=== PATIENT | female | born 1940 | race Caucasian/White ===

== ENCOUNTER 2024-09-25 10:25 | Outpatient (AMB) | payer MEDICARE, BC, SELFPAY ==
--- NOTE | 2024-09-25 10:27 | MHC.OFFVIS ---
Intake Visit Reasons: 3m anxiety Allergies clindamycin Allergy (Unknown, Verified 09/23/24 09:20) Unknown Medication List - Last Reconciled 09/25/24 by Kyle Anderson MD alprazolam 0.25 mg PO PRN escitalopram oxalate 5 mg PO DAILY HPI Comments Details: 83 years old left-handed woman who has been taking some medicines for her feet and leg symptoms for number of years. He said that they were prescribed to her for peripheral neuropathy. At this time her symptoms were numbness in her feet and legs but no pain. There has been no change in her prescriptions and she continued to take them. She was not known to have diabetes and was not drinking alcohol and does not exposed to chemotherapy. She was still feeling stressed and anxious about her 's medical condition. [facility] Medical History (Updated 09/25/24 @ 11:01 by Kyle Anderson MD) Anxiety Peripheral neuropathy Review of Systems Const Details: Constitutional:?No fever, chills, fatigue, weight loss, or night sweats. HEENT:?No headache, vision changes, hearing loss, nasal congestion, sore throat. Neurological:?Feeling numbness in legs Psychiatric:?Feeling stressed and nervous Endocrine:?No heat/cold intolerance, polydipsia, polyuria, or hair/skin changes. Hematologic/Lymphatic:?No easy bruising, bleeding, or lymphadenopathy. Integumentary (Skin):?No rash, lesions, itching, or color changes. ? Physical Exam Neuro Other: Mental Status: Alert and oriented to person, place, and time. Normal attention. Normal spontaneous speech, fluency, and comprehension. No obvious issues with mood and memory. Affect is appropriate. Cranial Nerves: CN II: Visual gomes full to confrontation, visual acuity intact. CN III, IV, : Pupils equal, round, reactive to light and accommodation. Extraocular movements are normal. CN V: Facial sensation is normal. CN VII: Facial movements symmetrical. CN VIII: Hearing intact to bedside conversation is normal. CN IX, X: Palate elevates symmetrically. CN XI: Shoulder shrug and head turn symmetrical. CN XII: Tongue midline without atrophy or fasciculations. Motor: Bulk and tone normal in all extremities. No significant muscle weakness in arms and legs. No drift. Reflexes: Deep tendon reflexes 2+ and symmetric. Plantar response down-going bilaterally. Coordination: Nifope-ig-baoy and qagl-uz-vnaw testing normal. No dysmetria. Gait and Station: No obvious gait abnormality. No ataxia or instability. Sensory: Intact to light touch, pinprick, and vibration. Romberg is negative. Extrapyramidal: Full facial expressions and blinking. No rigidity. Movements are appropriate with no tremor or abnormality. Speech: Normal; no dysarthria or tremor. Assessment & Plan Assessment & Plan (1) Peripheral neuropathy: Code(s): G62.9 - Polyneuropathy, unspecified Category: Medical Qualifiers: Peripheral neuropathy type: polyneuropathy, unspecified Qualified Code(s): G62.9 - Polyneuropathy, unspecified (2) Anxiety: Code(s): F41.9 - Anxiety disorder, unspecified Category: Medical Plan Impression: Leg numbness from peripheral neuropathy with significant anxiety and stress Rec: a: Escitaloprim 5mg one a day b: Alprazolam 0.25mg one or twice a day as needed for anxiety/panic Medications: New escitalopram oxalate 5 mg PO DAILY 90 tabs 1RF Coding Level of Care Code Est Pt Level 4 (69473) Diagnoses Peripheral polyneuropathy G62.9 Peripheral neuropathy type: polyneuropathy, unspecified Anxiety F41.9
--- OUTSIDE RECORDS SUMMARY | 2024-09-25 11:00 | XMS_ITS | Clinical Summary ---
Author Organization [facility] Address [address] [place] [address] Phone Care Team Providers Care Health Informatics Instructor Name Role Phone Teresa Ballard Primary Care Provider Allergies Active Allergy Reactions Criticality Noted Date Comments Adhesive Rash 06/06/2024 pt allergic to the adhesive in the bandages.... pt allergic to the adhesive in tape... Clindamycin Diarrhea 06/06/2024 Latex Rash 06/06/2024 Medications metoprolol succinate (TOPROL-XL) 100 mg 24 hr tablet Take 1 tablet (100 mg total) by mouth 1 (one) time each day. for 90 days Active amLODIPine (NORVASC) 5 mg tablet Take 1 tablet (5 mg total) by mouth 1 (one) time each day. for 90 days Active levothyroxine sodium (SYNTHROID ORAL) Take 50 mcg by mouth. 4 Active lisinopriL (PRINIVIL,ZESTR IL) 20 mg tablet Take 1 tablet (20 mg total) by mouth 1 (one) time each day. Active pentoxifylline (TRENtal) 400 mg CR tablet TAKE 1 TABLET (400 MG) BY ORAL ROUTE 2 TIMES PER DAY WITH MEALS FOR 90 DAYS Active estradioL (ESTRACE) 0.01 % (0.1 mg/gram) vaginal cream 1 Gram to the affected area Vaginal/Vulva Twice a week for 90 Days 4 Active calcium citrate-vitamin D3 (Citracal + D Maximum) 315 mg-6.25 mcg (250 unit) per tablet 1 tablet every 12 hours. Active cholecalciferol (VITAMIN D-3) 50 mcg (2,000 unit) tablet 1 tablet (2,000 Units total) 3 (three) times a week. 3 Active multivitamin with minerals (Centrum Silver) tablet ORAL for -3 1 Active Bifidobacterium infantis (Align, B.infantis,) 4 mg capsule 1 (one) time each day at the same time. 3 Active sodium chloride (Simply Saline) 0.9 % aerosol,spray as directed Nasally Active peg 400-propylene glycol (Systane Ultra) 0.4-0.3 % drops Administer 1 drop into both eyes 1 (one) time each day at the same time. 3 Active vitamin B complex vit C no.4 (SUPER B COMPLEX + C ORAL) Super B Complex Acti ve desonide (DESOWEN) 0.05 % lotion 1 Application. Activ e desoximetasone (TOPICORT) 0.25 % cream APPLY THIN LAYER TO AFFECTED AREAS ON ARMS AND LEGS FOR UP TO 2 WEEKS AT A TIME NEEDED 4 Active estradioL (ESTRACE) 0.01 % (0.1 mg/gram) vaginal cream INSERT 1 GRAM VAGINALY TWICE A WEEK FOR 90 DAYS 4 Active escitalopram (LEXAPRO) 5 mg tablet Take 1 tablet (5 mg total) by mouth 1 (one) time each day. for 30 days 5 Active pimecrolimus (ELIDEL) 1 % cream Apply topically 2 (two) times a day. Active triamcinolone (KENALOG) 0.1 % cream Apply topically 2 (two) times a day. 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 Benign essential hypertension 12/15/2021 Butterfly rash 12/15/2021 Closed fracture of left wrist 12/15/2021 Primary hypothyroidism 12/15/2021 Polyp of colon 12/15/2021 Raynaud's phenomenon 12/15/2021 Primary hyperparathyroidism ([facility] V24) 2021 Scoliosis of lumbar spine 12/15/2021 Hyponatremia 12/15/2021 Idiopathic peripheral neuropathy 12/15/2021 Encounters Date Type Department Care Team Description 08/12/2024 8:00 AM EDT Office Visit Gastroenterology - [address] [facility] [address] [place] [phone] Shikha Valencia PA Other irritable bowel syndrome (Primary Dx) 07/29/2024 9:14 AM EDT Anesthesia Event [facility] [address] [place] [address] Michele Rojo MD 07/29/2024 8:08 AM EDT - 07/29/2024 11:59 PM EDT Hospital Encounter [facility] [address] [place] [phone] Alexx Moreland MD Hayes, Brett L, CRNA Dasilva, John E, MD Diarrhea; Family history of malignant neoplasm of digestive organs; Personal history of colon polyps, unspecified Discharge Disposition: Home or Self Care from Last 3 Months Surgical History Surgery Date Site/Laterality Comments COLONOSCOPY 07/08/2021 recall 3 yrs HYSTERECTOMY DILATION AND CURETTAGE OF UTERUS BREAST BIOPSY COLONOSCOPY 07/03/2018 SSx1 COLONOSCOPY 08/06/2015 COLONOSCOPY 12/08/2010 COLONOSCOPY 10/18/2005 Medical History Medical History Date Comments Chronic diarrhea Colon polyp colonoscopy Hypertension Had around 1999 Anxiety Family History Medical History Relation Name Comments Colon cancer Mother Colon cancer Mother's Brother 1 Colon polyps Mother's Brother 2 Colon polyps Mother's Brother 3 Colon cancer Sister Relation Name Status Comments Mother Mother's Brother 1 Mother's Brother 2 Alive Mother's Brother 3 Alive Sister Social History Tobacco Use Types Packs/Day Years Used Date Smoking Tobacco: Never Smokeless Tobacco: Never Tobacco Cessation:Counseling Given: Not Answered Alcohol Use Standard Drinks/Week Comments Yes 0 (1 standard drink = 0.6 oz pur e alcohol) rare Interpersonal Safety Answer Date Record ed Physical Abuse 07/29/2024 Verbal Abuse 07/29/2024 Comments No Sex and Gender Information Value Date Recorded Sex Assigned at Not on file Legal Sex Female 8:08 AM EST Gender Identity Not on file Sexual Orientation Not on file Obstetrics History Last Filed Vital Signs Vital Sign Reading Time Taken Comments Blood Pressure 101/57 07/29/2024 9:55 AM EDT Pulse 57 07/29/2024 9:55 AM EDT Temperature 36.3 C (97.3 F) 07/29/2024 9:35 AM EDT Respiratory Rate 12 07/29/2024 9:55 AM EDT Oxygen Saturation 99% 07/29/2024 9:55 AM EDT Inhaled Oxygen Concentration - - Weight 49.4 kg (109 lb) 08/12/2024 7:57 AM EDT Height 165.1 cm (5' 5 ) 08/12/2024 7:57 AM EDT Body Mass Index 18.14 08/12/2024 7:57 AM EDT Plan of Treatment Upcoming Encounters Date Type Department Care Team (Late st Contact Info) Description 10/14/2024 8:00 AM EDT [facility]ointment [facility] [address] [phone] Health Maintenance Due Date Last Done Comments Zoster Vaccines (1 of 2) 1959 DTaP,Tdap,and Td Vaccines (2 - Td or Tdap) 01/15/2021 01/15/2011 Cholesterol Screening (Lipid Panel) 02/13/2022 Depression Screening 02/13/2022 Medicare Annual Wellness Visit 02/13/2022 Osteoporosis Screening (Bone Density Screening) 02/13/2022 Social Influencers of Health Screening 02/13/2022 Hypertension/CHF/CAD Annual BMP Blood Test 06/06/2024 COVID-19 Vaccine (9 - Pfizer risk 2023- season) 2024 02/13/2024, 01/02/2023, 07/05/2022, Additional history exists Influenza Vaccine (#1) 2024 , 12/06/2022, 12/16/2021, Additional history exists Falls Risk Assessment 07/29/2025 07/29/2024 Pneumococcal Vaccine: 50+ Years Completed 01/31/2023 RSV Immunization Adult Patients Completed 03/09/2023 HIB Vaccines Aged Out No longer eligi ble based on patient's age to complete this topic HPV Vaccines Aged Out No longer eligi ble based on patient's age to complete this topic Hepatitis A Vaccines Aged Out No long er eligible based on patient's age to complete this topic Hepatitis B Vaccines Aged Out No long er eligible based on patient's age to complete this topic IPV Vaccines Aged Out No longer eligi ble based on patient's age to complete this topic MMR Vaccines Aged Out No longer eligi ble based on patient's age to complete this topic Meningococcal ACWY Vaccine Aged Out N o longer eligible based on patient's age to complete this topic Meningococcal B Vaccine Aged Out No l onger eligible based on patient's age to complete this topic RSV Immunization Patients Under 20 months Aged Out No longer eligible based on patient's age to complete this topic Varicella Vaccines Aged Out No longer eligible based on patient's age to complete this topic Procedures Procedure Name Priority Date/Time Associated Diagnosis Comments COLONOSCOPY Routine 07/29/2024 9:34 AM EDT Diarrhea Family history of malignant neoplasm of digestive organs Personal history of colon polyps, unspecified TISSUE EXAM Routine 07/29/2024 9:27 AM EDT Diarrhea Family history of malignant neoplasm of digestive organs Personal history of colon polyps, unspecified from Last 3 Months Results * COLONOSCOPY Anesthesia - MAC; [facility] END[facility]COPY (07/29/2024 9:34 AM EDT) Anatomical Region Laterality Modality Endoscopy 07/29/2024 9:17 AM EDT Impressions 07/29/2024 9:35 AM EDT - One 5 mm polyp in the transverse colon, removed with a cold snare. Resected and retrieved. - The examination was otherwise normal. Recommendation: - Patient has a contact number available for emergencies. The signs and symptoms of potential delayed complications were discussed with the patient. Return to normal activities tomorrow. Written discharge instructions were provided to the patient. - Resume previous diet. - Continue present medications. - Await pathology results. Narrative 07/29/2024 9:[address] [facility] Patient Name: Karis Crawford Procedure Date: 07/29/2024 9:17 AM Date of : 1940 Age: 83 Room: ROOM 17 Gender: Female Note Status: Finalized Attending MD: Alexx Moreland MD, Procedure Date No Time: 07/29/2024 Procedure: Colonoscopy Indications: Screening patient at increased risk: Family history of colorectal cancer in multiple 1st-degree relatives Providers: Alexx Moreland MD Referring MD: Alexx Moreland MD Medicines: Monitored Anesthesia Care Complications: No immediate complications. Estimated Blood Loss: Estimated blood loss: none. Procedure: After I obtained informed consent, the scope was passed under direct vision. Throughout the procedure, the patient's blood pressure, pulse, and oxygen saturations were monitored continuously. The Colonoscope was introduced through the anus and advanced to the cecum, identified by appendiceal orifice and ileocecal valve. The colonoscopy was performed without difficulty. The patient tolerated the procedure well. The quality of the bowel preparation was adequate. Findings: A 5 mm polyp was found in the transverse colon. The polyp was sessile. The polyp was removed with a cold snare. Resection and retrieval were complete. The exam was otherwise without abnormality. Procedure Code(s): --- Professional --- 17391, Colonoscopy, flexible; with removal of tumor(s), polyp(s), or other lesion(s) by snare technique Diagnosis Code(s): --- Professional --- D12.3, Benign neoplasm of transverse colon (hepatic flexure or splenic flexure) Z80.0, Family history of malignant neoplasm of digestive organs CPT copyright 2020 [employer]. All rights reserved. The codes documented in this report are preliminary and upon oil well shooter review may be revised to meet current compliance requirements. MD Alexx Bolaños MD 07/29/2024 9:35:11 AM This report has been signed electronically.Alexx Moreland MD Number of Addenda: 0 Note Initiated On: 07/29/2024 9:17 AM Scope In: Scope Out: Endoscopy Department at [facility] - [address] [place] [phone] Procedure Note Alexx Moreland MD - 07/29/2024 [facility] Patient Name: Karis Crawford Procedure Date: 07/29/2024 9:17 AM Date of : 1940 Age: 83 Room: ROOM 17 Gender: Female Note Status: Finalized Attending MD: Alexx Moreland MD, Procedure Date No Time: 07/29/2024 Procedure: Colonoscopy Indications: Screening patient at increased risk: Family historyof colorectal cancer in multiple 1st-degreerelatives Providers: Alexx Moreland MD Referring MD: Alexx Moreland MD Medicines: Monitored Anesthesia Care Complications: No immediate complications. Estimated Blood Loss: Estimated blood loss: none. Procedure: After I obtained informed consent, the scope was passed under direct vision. Throughout theprocedure, the patient's blood pressure, pulse, and oxygen saturations were monitored continuously. The Colonoscope was introduced through the anus and advanced to the cecum, identified by appendiceal orifice and ileocecal valve. The colonoscopy was performed without difficulty. The patient tolerated the procedure well. The quality of the bowel preparation was adequate. Findings: A 5 mm polyp was found in the transverse colon. The polyp was sessile. The polyp was removed with acold snare. Resection and retrieval were complete. The exam was otherwise without abnormality. Procedure Code(s): --- Professional --- 68137, Colonoscopy, flexible; with removal of tumor(s), polyp(s), or other lesion(s) by snare technique Diagnosis Code(s): --- Professional --- D12.3, Benign neoplasm of transverse colon (hepatic flexure or splenic flexure) Z80.0, Family history of malignant neoplasm of digestive organs CPT copyright 2020 [employer]. All rights reserved. The codes documented in this report are preliminary and upon oil well shooter reviewmay be revised to meet current compliance requirements. MD Alexx Bolaños MD 07/29/2024 9:35:11 AM This report has been signed electronically.Alexx Moreland MD Number of Addenda: 0 Note Initiated On: 07/29/2024 9:17 AM Scope In: Scope Out: Endoscopy Department at [facility] - [address] [place] [phone] IMPRESSION: - One 5 mm polyp in the transverse colon, removed with a cold snare. Resected and retrieved. - The examination was otherwise normal. Recommendation: - Patient has a contact number available for emergencies. The signs and symptoms of potential delayed complications were discussed with thepatient. Return to normal activities tomorrow. Written discharge instructions were provided to thepatient. - Resume previous diet. - Continue present medications. - Await pathology results. Alexx Moreland MD GI~PROCEDURE ORDERABLES Final R esult * Tissue exam (07/29/2024 9:27 AM EDT) Final Diagnosis Polyp, transverse colon, polypectomy: - Tubular adenoma. 07/30/2024 10:00 AM EDT [facility] Gross Description A. Large Intestine, Transverse Colon, polypX1: Labeled trans colon polyp x 1 . Received in formalin is a 0.6 cm irregular saleh mucosal tissue fragment which is wrapped in paper and submitted in toto in one cassette, one piece, multiple levels on one slide. CLAUDIO 07/30/2024 10:00 AM EDT [facility] Disclaimer Unless otherwise specified, all tissue is 10% NB formalin fixed and paraffin embedded. 07/30/2024 10:00 AM EDT [facility] Tissue Transverse colon structure / Unknown 07/29/2024 9:27 AM EDT 07/29/2024 10:22 AM EDT Alexx Moreland MD LAB PATHOLOGY ORDERABLES Final Result [facility] [address] [place] [address], from Last 3 Months Insurance MEDICARE [facility] Member Subscriber Plan / Payer (Ef fective 2024-Present) Name:KARIS CRAWFORD Relation to Subscriber:Spouse Name:SAMAN CRAWFORD Date of :1940 (Home) Address: [address] [place] [phone] Payer ID:[id number] Group ID:[id number] Type:Not on file Address: [address] [place] [address] Care Teams Health Informatics Instructor Relationship Specialty Start Date End Date Teresa Ballard PA [facility] [address] [place] [address] PCP - General Physician Corrective Therapy Aide Teacher 05/13/24
--- OUTSIDE RECORDS SUMMARY | 2024-09-25 11:00 | XMS_ITS | Continuity of Care Document ---
Author Organization [facility] [address] [place] [address] Phone [phone] Care Team Providers Care Ophthalmic Medical Technician Name Role Phone Spring Singletary MD Care Team Inform ation Home Builder [phone] Teresa Ballard PA-C Care Team Information Re ceiver [phone] Problems Active Problems Provider Date Scoliosis of lumbar spine Jenna Tejeda M.D. Onset: 12/15/2021 Osteoporosis Jenna Tejeda M.D. Ons et: 12/15/2021 Essential hypertension Asiya Mehta Onset: 12/15/2021 Hypothyroidism Jenna Tejeda M.D. Ons et: 12/15/2021 Polyp of colon Jenna Tejeda M.D. Ons et: 12/15/2021 Raynaud's phenomenon Margaret Mehta Onset: 12/15/2021 Primary hypothyroidism Asiya Mehta Onset: 12/15/2021 Hyponatremia Jenna Tejeda M.D. Ons et: 12/15/2021 Primary hyperparathyroidism Jenna saha M.D. Onset: 12/15/2021 Idiopathic peripheral neuropathy Jenna Butt M.D. Onset: 12/15/2021 Butterfly rash Jenna Tejeda M.D. Ons et: 12/15/2021 Closed fracture of left wrist Jenna estrada M.D. 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 Multivitamin Womens 50+ AdvancedTablets 1 by mouth every day Jenna Tejeda M.D. Vitamin B ComplexTablets 1 every day Jenna Tejeda M.D. Oaojs0df Capsules 1 by mouth every day Jenna Tejeda M.D. Metoprolol Succinate IL790ut Tablets ER 24HR Take 1 Tablet By Mouth Every Day Jenna Tejeda M.D. Jgwchxfghh31qz Tablets 1 by mouth every day 90tabs Jenna Tejeda M.D. Vitamin D High Rdggonu08kiu (1000 Ut) Capsules 1 by mouth 3 x week Jenna Tejeda M.D. Estradiol0.1mg/GM Cream 2 x week K jany Tejeda M.D. Amlodipine Betyezbj9rm Tablets 1 by mouth every day Unknown Citracal Rprmclw747-2.25mg-mcg Tablets 2 by mouth every day Jenna Tejeda M.D. Vital Signs Date Vital Result Comment 06/21/2024 8:01am BP Systolic 140 mmHg BP Diastolic 80 mmHg Heart Rate 93 /min Height 65.5 inches 5'5.50 Weight 110.00 lb BMI (Body Mass Index) 18.0 kg/m2 Results Test Acquired Date Facility Test Result H/L Range Note TSH Rfx on Abnormal to Free T4 06/21/2024 [facility] TSH Rfx on Abnormal to Free T4 1.090 uIU/mL 0.450-4. 500 Basic Metabolic Panel (8) 06/21/2024 [facility] Glucose 86 mg/dL 70-99 BUN 16 mg/dL 8-27 Creatinine 0.74 mg/dL 0.57-1.0 0 eGFR 81 mL/min/1.7 3 >59 BUN/Creatinine Ratio 22 12-28 Sodium 138 mmol/L 134-144 Potassium 4.4 mmol/L 3.5-5.2 Chloride 98 mmol/L 96-106 Carbon Dioxide, Total 28 mmol/L 20-29 Calcium 9.3 mg/dL 8.7-10.3 Vitamin D, 25-Hydroxy 06/21/2024 [facility] Vitamin D, 25-Hydroxy 66.4 ng/mL 30.0-100 .0 1 Albumin 06/21/2024 [facility] Albumin 4.1 g/dL 3.7-4.7 TSH Rfx on Abnormal to Free T4 12/21/2023 [facility] TSH Rfx on Abnormal to Free T4 2.810 uIU/mL 0.450-4. 500 TSH Rfx on Abnormal to Free T4 06/21/2023 [facility] TSH Rfx on Abnormal to Free T4 2.660 uIU/mL 0.450-4. 500 BMP7+eGFR 06/21/2023 [facility] Glucose 73 mg/dL 70-99 BUN 14 mg/dL 8-27 Creatinine 0.82 mg/dL 0.57-1.0 0 eGFR 72 mL/min/1.7 3 >59 Sodium 138 mmol/L 134-144 Potassium 4.2 mmol/L 3.5-5.2 Chloride 96 mmol/L 96-106 Carbon Dioxide, Total 25 mmol/L 20-29 Albumin 06/21/2023 [facility] Albumin 4.3 g/dL 3.7-4.7 Comprehensive Metabolic Panl 12/20/2022 [facility] Glucose 64 mg/dL Low (70-99) BUN 13 mg/dL (8-23) Creatinine 0.8 mg/dL (0.5-1.0 ) Sodium 138 mmol/L (133-145 ) Potassium 4.3 mmol/L (3.6-5.2 ) Chloride 97 mmol/L Low (98-107) Bicarbonate 29 mmol/L (22-29) Anion Gap 12 (4-17) Albumin 4.3 GM/DL (3.4-4.8 ) Calcium 9.6 mg/dL (8.6-10. 5) Bilirubin,Total 0.3 mg/dL (0-1.2 ) Total Protein 6.3 GM/DL (6.2-8.2 ) Ag Ratio 2.2 Ast 31 U/L (0-32) Alk Phos 62 U/L (35-104) Alt 19 U/L (0-33) Estimated GFR Creatinine 80 ML/MIN/1.7 3M2 2 TSH With Reflex To FT4 12/20/2022 [facility] TSH With Reflex To FT4 3.35 uIU/mL (0.4-4.2 ) 25Oh Vitamin D 12/20/2022 [facility] 25Oh Vitamin D 50.6 NG/ML High (20-50) TSH With Reflex To FT4 06/20/2022 [facility] TSH With Reflex To FT4 3.38 uIU/mL (0.4-4.2 ) 25Oh Vitamin D 06/20/2022 [facility] 25Oh Vitamin D 50.3 NG/ML High (20-50) N-Telopeptide Cross Links, Urine 12/18/2021 [facility] Cross Linked N-Telopeptides 70 3 Creat, Urine 75.8 4 N-Telopeptide/C r eat Ratio 10 5 NTX Interpretaion Comment 6 1 Vitamin D deficiency has been defined by the Whitney of Medicine and an Endocrine Society practice guideline as a level of serum 25-OH vitamin D less than 20 ng/mL (1,2). The Endocrine Society went on to further define vitamin D insufficiency as a level between 21 and 29 ng/mL (2). 1. IOM (Whitney of Medicine). 2010. Dietary reference intakes for calcium and D. [place]: The National Academies Press. 2. Solis MF, Khanh PEGUERO, James GLOVER, et al. Evaluation, treatment, and prevention of vitamin D deficiency: an Endocrine Society clinical practice guideline. JCEM. 2010; 96(7):1911-30. 2 Creatinine based est imated glomerular filtration (eGFR) in adults is calculated using the National Kidney Foundation recommended 2020 CKD-EPI equation. Estimates GFR from serum creatinine, age and sex. 3 Reference range: Not Estab. Unit: nmol [place] [address] 4 Reference range: Not Estab. Unit: mg/dL Test performed by [facility], [address] [place] [address] 5 Reference range: 0 t o 89 Unit: nM BCE/mM Cr 6 (NOTE) The N-telopeptide and Creatinine are used to calculate the N-telo/Creat. Ratio which is referred to as NTx . Suggested guidelines for the clinical use of NTx are as follows: 1. Menopausal Women not on Hormone Replacement Therapy (HRT): Women with a baseline NTx value >38 are at significant risk for a decrease in bone mineral density (BMD) after 1 year compared to women on HRT. The probability of a decline in BMD increases with NTx value as follows: (1): Baseline NTx Probability of Decrease in BMD 18- 38 1.4 p EQ 0.28 38- 51 2.5 p EQ 0.03 51- 67 3.8 p EQ 0.0006 67-188 17.3 p EQ 0.0001 2. Menopausal Women Receiving Antiresorptive Therapy: The probability that treatment is effective after three months is increased when the measured NTx value is <or EQ 38 nM BCE/mM RAILROAD WHEELS AND AXLE INSPECTOR, or NTx has decreased >or EQ 30% from baseline.[1] 3. Patients with Paget's Disease of Bone: The probability that treatment is effective after one month is increased when the measured NTx value is within the reference range, or NTx has decreased >or EQ 30% from baseline.[2] 1. Ganga CH, Ale NH, Panfilo GS, et al. Am J Med, 102:29-37,1997. (1):M757, 1995. 2. Bone H, Matthew J, et al. J Bone Min Res.11(1):M757,1996 Test performed at [facility], [address] [place] [address] Procedures Date Code Description Status 06/21/2024 22063 Collection Of Venous Blood B y Venipuncture Completed 12/21/2023 50716 Collection Of Venous Blood B y Venipuncture Completed 06/21/2023 43329 Collection Of Venous Blood B y Venipuncture Completed 12/20/2022 34640 Collection Of Venous Blood B y Venipuncture Completed 06/20/2022 33808 Collection Of Venous Blood B y Venipuncture Completed Medical Devices Description No Information Available Encounters Type Date Location Provider Dx Diagnosis Office Visit 06/21/2024 8:00a Main Office Jenna Tejeda M.D. E03.9 Hypothyroidism, unspecified M81.0 Age-related osteopor osis w/o current pathological fracture E21.0 Primary hyperparathy roidism E87.1 Hypo-osmolality and hyponatremia Assessments Date Code Description Provider 06/21/2024 E03.9 Hypothyroidism, unspecified Jenna Tejeda M.D. 06/21/2024 M81.0 Age-related oste oporosis without current pathological fracture Jenna Tejeda M.D. 06/21/2024 E21.0 Primary hyperparathyroidism Jenna Tejeda M.D. 06/21/2024 E87.1 Hypo-osmolality and hyponatr emia Jenna Tejeda M.D. Plan of Treatment Future Appointment(s):* 12/27/2024 8:15 am - Jenna Tejeda M.D. at Main Office 06/21/2023 - Jenna Tejeda M.D.* E03.9 Hypothyroidism, unspecified * E21.0 Primary hyperparathyroidism * E87.1 Hypo-osmolality and hyponatremia * M81.0 Age-related osteoporosis without current pathological fracture Functional Status Description No Information Available Mental Status Description No Information Available Referrals Description No Information Available
--- OUTSIDE RECORDS SUMMARY | 2024-09-25 11:00 | XMS_ITS | Patient Health Record ---
Author Organization [facility] Address [address] [place] [address] Care Team Providers Care Television Presenter Name Role Phone ROBERT AVALOS Primary Care Provide Naty Hansen Unavailable [phone] Allergies Allergen (clinical drug ingredient) Drug/Non Drug Allergy documented on EMR Reaction Allergy Type Onset Date Status clindamycin CLEOCIN Diarrhea Drug Allergy Activ e clindamycin CLINDAMYCIN HCL Diarrhea Drug Allergy Active Latex Latex Rash Allergy Active Reason For Referral No Information Medications Medication SIG (Take, Route, Frequency, Duration) Notes Start Date End Date Status Synthroid 50 MCG 1 tablet in the morn ing on an empty stomach Orally Once a day 01/07/2011 Active Systane Ultra ORAL daily; Duration: -3 01/10/2013 Active Metoprolol Succinate ER 100 MG Oral; Duration: 67 Days Acti ve Vitamin D3 50 MCG (2000 UT) 1 tablet Ora lly Once a day 01/10/2013 Active amLODIPine Besylate 5 MG Oral; Duration: 90 Days Active Estradiol Vaginal Cream 0.01% 1 Gram to the affected area Vaginal/Vulva Twice a week; Duration: 90 Days 09/03/2024 Active Pentoxifylline ER 400 MG 1 tablet with m eals Orally Twice a day Active Estradiol Vaginal Cream 0.01% 1 Gram to the affected area Vaginal/Vulva Twice a week; Duration: 90 Days 02/12/2024 Active Lisinopril 20 MG 1 tablet Orally Once a day Active Benefiber Active Desonide 0.05 % 1 application Zipper Trimmer Hand ally as needed Active Multi-Vitamin - 1 tablet Orally Once a day; Duration: 30 day(s) Active Super B Complex Acti ve Align ORAL daily; Duration: -3 01/10/2013 Active Citracal Maximum 315-250 MG-UNIT 1 tablet Orally Twice a day; Duration: 30 day(s) Active Amitriptyline HCl 10 MG 3 tablets Orally Once a day 10/04/2012 Active Simply Saline 0.9 % as directed Nasally Active Centrum Silver ORAL; Duration: -3 01/07/2011 Active Social History Tobacco Use: Social History Observation Description Date Details (start date - stop date) Never Smoker NA - NA AUDIT-C (Standard) Question Answer Notes Did you have a drink contain ing alcohol in the past year? Yes How often did you have a dri nk containing alcohol in the past year? Monthly or less (1 point) How many drinks did you have on a typical day when you were drinking in the past year? 1 or 2 drinks (0 point) How often did you have six o r more drinks on one occasion in the past year? Never (0 point) Points 1 Interpretation Negative Tobacco Control (Standard) Question Answer Notes Tobacco use: Nonsmoker Problems Problem Type SNOMED Code ICD Code Onset Dates Problem Status W/U Status Risk Notes Problem Postmenopausal atrophic vaginitis (76126340) Postmenopausal atrophic vaginitis (N95.2) Active confirmed Problem Postmenopausal bleeding (94833356) Postmenopausal bleeding (N95.0) Active confirmed Problem Age-related osteoporosis (073085578) Age-related osteoporosis without current pathological fracture (M81.0) Active confirmed Problem Urethral caruncle (4616746) Urethral caruncle (N36.2) Active confirmed Problem Atrophy of vulva (499319586) Atrophy of vulva (N90.5) Active confirmed Problem Hypothyroidism (80356325) Unspecified hypothyroidism (244.9) Active confirmed Major Problem Benign essential hypertension (6024844) Essential hypertension, benign (401.1) Active confirmed Major Problem Urethral caruncle (9256501) Urethral caruncle (599.3) Active confirmed Major Problem Menopausal symptom (34262828) Symptomatic menopausal or female climacteric states (627.2) Active confirmed Major Problem Postmenopausal atrophic vaginitis (90211180) Postmenopausal atrophic vaginitis (627.3) Active confirmed Other Problem Osteoporosis (83333916) Unspecified osteoporosis (733.00) Active confirmed Diag Problem Gynecological examination normal (051109556450145) Routine gynecological examination (V72.31) Active confirmed Diag Problem Screening for malignant neoplasm of cervix (239923295) Screening for malignant neoplasm of the cervix (V76.2) Active confirmed Diag Problem Screening for malignant neoplasm of colon (393465234) Special screening for malignant neoplasms, colon (V76.51) Active confirmed Major Vital Signs Temperature 97.7 degrees Fahrenheit 09/03/2024 Blood pressure diastolic 78 mm Hg 09/03/2024 Height 64.75 in 09/03/2024 Blood pressure systolic 138 mm Hg 09/03/2024 Weight 107 lbs 09/03/2024 BMI 17.94 kg/m2 09/03/2024 Encounters Encounter Location Date Provider Diagnosis [facility] [address] [place] [address] [place] [address] 02/12/2024 Naty Martinez Encounter for gynecological examination (general) (routine) without abnormal findings Z01.419 ; Encounter for screening mammogram for malignant neoplasm of breast Z12.31 ; Atrophy of vulva N90.5 ; Postmenopausal atrophic vaginitis N95.2 ; Age-related osteoporosis without current pathological fracture M81.0 and Dense breasts, unspecified R92.30 [facility] [address] [place] [address] [place] [address] 09/03/2024 Naty Martinez Postmenopausal atrophic vaginitis N95.2 and Atrophy of vulva N90.5 Assessments Encounter Date Diagnosis (ICD Code) Assessment Notes Treatment Notes Treatment Clinical Notes Section Notes 02/12/2024 Encounter for gynecological examination (general) (routine) without abnormal findings (ICD-10 - Z01.419) NO MORE PAP TESTS. 09/03/2024 Postmenopausal atrophic vaginitis (ICD-10 - N95.2) DISCUSSED FINDINGS, DX AND TX OPTIONS. DETAILED INSTRUCTIONS WERE GIVEN. APPLY THE CREAM TWICE WEEKLY INTRAVAGINALLY. 09/03/2024 Atrophy of vulva (ICD-10 - N90.5) DISCUSSED SEVERE VULVAR ATROPHY. DETAILED INSTRUCTIONS WERE GIVEN. APPLY ESTRADIOL CREAM THRICE A WEEK FOR 2 TO 4 WEEKS THEN REDUCE TO TWICE WEEKLY. USE LUBRICANTS IF NEEDED. 02/12/2024 Encounter for screening mammogram for malignant neoplasm of breast (ICD-10 - Z12.31) REGULAR MAMMOGRAMS AND SBE'S WERE RECOMMENDED. 02/12/2024 Atrophy of vulva (ICD-10 - N90.5) CONTINUE USING ESTRADIOL CREAM FOR AV AND AV. 02/12/2024 Postmenopausal atrophic vaginitis (ICD-10 - N95.2) CONTINUE TO APPLY ESTRADIOL INTRAVAGINALLY. 02/12/2024 Age-related osteoporosis without current pathological fracture (ICD-10 - M81.0) DISCUSSED OSTEOPOROSIS AND ITS IMPACT ON HER HEALTH. ADEQUATE CALCIUM AND VIT D. WEIGHT BEARING EXERCISES. 02/12/2024 Dense breasts, unspecified (ICD-10 - R92.30) DISCUSSED DENSE BREASTS ON MAMMOGRAM AND ITS IMPLICATIONS. 3D MANNIGRAMS WERE RECOMMENDED. Plan Of Treatment Pending Test Test Name Order Date BONE DENSITY EXTREMITY 01/22/2019 MAMMOGRAM, SCREENING 02/01/2021 MAMMOGRAM, SCREENING 02/06/2023 MAMMOGRAM, SCREENING 02/12/2024 MAMMOGRAM, SCREENING 01/15/2015 Urinalysis 03/25/2021 Urinalysis 10/08/2021 BONE DENSITY 02/01/2021 BONE DENSITY 02/06/2023 MM Digital Mammo Screening 04/12/2018 MM Digital Mammo Screening 02/12/2024 MM Digital Mammo Screening 04/14/2015 MM Digital Mammo Screening 01/30/2020 MM Digital Mammo Screening 04/11/2022 MM Digital Mammo Screening 02/06/2023 Next Appt Details Provider Name:Naty dempsey, 02/13/2025 10:00:00 AM, [address] [place] [address], [address], [place], [address], Insurance Providers Payer Name Payer Address Payer Phone Subscriber Number Group Number Insured Name Patient Relationship to Insured Coverage Start Date Coverage End Date MEDICARE [address] [place] [id number] KARIS ONEILL LT Self - patient is the insured BCBS OF [facility] [address] [place] [address] [id number] KARIS ONEILL LT Self - patient is the insured Medical (General) History Medical History History ICD Code Age-related osteoporosis without current pathological fracture M81.0 Essential (primary) hypertension I10 Hypothyroidism, unspecified E03.9 Postmenopausal atrophic vaginitis N95.2 Family history of malignant neoplasm of digestive organs Z80.0 Inconclusive mammogram R92.2 Atrophy of vulva N90.5 Postmenopausal bleeding N95.0 Urethral caruncle N36.2 Mammographic heterogeneous density, bila teral breasts R92.333 Surgical History Surgery Date(Month/Year) Right Breast Biopsy Urethral Caruncle Excsion Thyroidectomy Colonoscopy Tooth Implant Hospitalization History Reason Date(Month/Year) See Surgical Hx 2 Vaginal Deliveries
== END 2024-09-25 11:12 | disposition home or self-care (01) ==
LOC: HO.HSM 10:25
PROVIDERS: PCP Internal Medicine; Visit Provider Psychiatry & Neurology Neurology
DX: G62.9 Polyneuropathy, unspecified (principal); F41.9 Anxiety disorder, unspecified
CPT/HCPCS: 99214

== ENCOUNTER → 2024-09-25 10:25 | Outpatient (BNVA) | payer MEDICARE, BC, SELFPAY | PROVIDERS: PCP Internal Medicine; Visit Provider Psychiatry & Neurology Neurology | DX: G62.9 Polyneuropathy, unspecified (principal); F41.9 Anxiety disorder, unspecified; Z79.899 Other long term (current) drug therapy | CPT/HCPCS: 99212 ==